=== PATIENT | male | born 1965 ===

== ENCOUNTER 2022-08-16 23:40 | Inpatient (IN) ==
[2022-08-17] MEDS ORDERED: ALUM/MAG/SIMETH/LIDO VISC 1:1 30 ML BOTTLE PO STA (00:02)
[2022-08-17] MEDS ORDERED: MORPHINE 2 MG/1 ML SYRINGE IV STA (00:02)
[2022-08-17] MEDS ORDERED: NITROGLYCERIN 2% OINT 1 INCH/GM PACK TOP STA (00:02)
[2022-08-17] MEDS ORDERED: ASPIRIN 325 MG TABLET PO STA (00:02)
[2022-08-17] MEDS ORDERED: ONDANSETRON 4 MG/2 ML VIAL IV STA (00:02)
[2022-08-17 00:18] LABS: Alanine Aminotransferase 42 U/L (16-61); Alkaline Phosphatase 129 U/L (45-117); Aspartate Amino Transferase 29 U/L (0-37); Bilirubin,Total < 0.39 MG/DL (0.20-1.00); Blood Urea Nitrogen 13 MG/DL (7-18); Calcium 8.5 MG/DL (8.5-10.1); Carbon Dioxide 25 MMOL/L (21-32); Chloride 110 MMOL/L (98-107); Glucose 128 MG/DL (74-106); Osmolality,Calculated 282.3 MOS/KG (273-304); Potassium 3.8 MMOL/L (3.5-5.1); Sodium 141 MMOL/L (136-145); Total Protein 7.6 G/DL (6.4-8.2)
[2022-08-17] MEDS ORDERED: TICAGRELOR 90 MG TABLET PO STA (00:19)
[2022-08-17] MEDS ORDERED: HEPARIN 5,000 UNIT/1 ML VIAL ONE ×2 (00:19→01:04)
[2022-08-17] MEDS ORDERED: TICAGRELOR 90 MG TABLET ONE (00:19)
[2022-08-17] MEDS ORDERED: HEPARIN 1,000 UNIT/1 ML VIAL IV STA (00:20)
[2022-08-17 00:26] LABS: Basophils % 0.4 % (0.0-0.8); Eosinophils # 0.1 10*3/uL (0.0-0.87); Eosinophils % 2.1 % (0.00-10.9); Hematocrit 44.8 VOL% (42.0-52.0); Immature Granulocytes % 0.1 %; Immature Granulocytes Absolute 0.01 #; Lymphocytes # 3.5 10*3/uL (1.4-4.0); Lymphocytes % 52.1 % (21.2-54.2); Mean Corpuscular HGB Conc 33.5 GM/DL (32-36); Mean Corpuscular Volume 92.6 FL (87-102); Mean Platelet Volume 9.5 FL (9.6-12.0); Monocytes # 0.8 10*3/uL (0.11-0.8); Monocytes % 12.4 % (1.7-12.7); Neutrophils % 32.9 % (38.7-73.9); Platelet Count 244 T/CUMM (130-400); Red Blood Count 4.84 MC/CUMM (3.8-5.5); Red Cell Distribution Width 12.4 % (9.3-17.3); White Blood Count 6.7 T/CUMM (4-12)
[2022-08-17] MEDS ORDERED: HEPARIN/NACL 0.9% 2 UNITS/ML 3,000 UNIT/1,500 ML BAG IV ONE (00:45)
[2022-08-17 00:57] LABS: Eosinophils 2 % (0-10); Lymphocytes 55 % (20-55); Platelet Estimate Adequate; Total Cells Counted 100
[2022-08-17] MEDS ORDERED: MIDAZOLAM 2 MG/2 ML VIAL ONE (00:58)
[2022-08-17] MEDS ORDERED: fentaNYL 100 MCG/2 ML VIAL ONE (00:58)
[2022-08-17] MEDS ORDERED: NITROGLYCERIN DRIP 50 MG/250 ML BOTTLE IV ONE (01:28)
[2022-08-17] MEDS ORDERED: GLUCAGON 1 MG VIAL IM PRN (01:57)
[2022-08-17] MEDS ORDERED: MORPHINE 10 MG/1 ML VIAL ONE (02:06)
[2022-08-17] MEDS ORDERED: DEXTROSE 10% 250 ML BAG IV PRN (02:10)
[2022-08-17] MEDS: SODIUM CHLORIDE 0.9% 600 ML IV SCH ×2 (02:15→08:28)
[2022-08-17 03:23] LABS: Barbiturates Screen,Urine Negative (Negative); Benzodiazepines Screen,Urine Positive (Negative); Cannabinoid Screen,Urine Negative (Negative); Opiate Screen,Urine Positive (Negative); Phencyclidine Screen,Urine Negative (Negative)
[2022-08-17 06:10] LABS: Basophils % 0.3 % (0.0-0.8); Eosinophils # 0.1 10*3/uL (0.0-0.87); Eosinophils % 0.7 % (0.00-10.9); Hematocrit 43.8 VOL% (42.0-52.0); Hemoglobin 14.4 GM/DL (14.0-18.0); Immature Granulocytes % 0.4 %; Immature Granulocytes Absolute 0.03 #; Lymphocytes # 1.5 10*3/uL (1.4-4.0); Lymphocytes % 19.7 % (21.2-54.2); Mean Corpuscular HGB Conc 32.9 GM/DL (32-36); Mean Corpuscular Volume 93.6 FL (87-102); Mean Platelet Volume 9.2 FL (9.6-12.0); Monocytes # 0.6 10*3/uL (0.11-0.8); Monocytes % 7.3 % (1.7-12.7); Neutrophils % 71.6 % (38.7-73.9); Platelet Count 232 T/CUMM (130-400); Red Blood Count 4.68 MC/CUMM (3.8-5.5); Red Cell Distribution Width 12.5 % (9.3-17.3); White Blood Count 7.5 T/CUMM (4-12)
[2022-08-17 06:33] LABS: Calcium 8.3 MG/DL (8.5-10.1); Osmolality,Calculated 274.7 MOS/KG (273-304); Potassium 4.2 MMOL/L (3.5-5.1); Risk Ratio 3.12; VLDL Cholesterol 17.8 MG/DL
[2022-08-17] MEDS: INSULIN REGULAR 100 UNIT/ML SUBCUT SCH ×4 (07:47→20:22)
[2022-08-17] MEDS: ASPIRIN EC 81 MG TABLET PO SCH (09:35)
[2022-08-17] MEDS: TICAGRELOR 90 MG TABLET PO SCH ×2 (09:35→22:06)
[2022-08-17] MEDS: METOPROLOL TARTRATE 25 MG TABLET PO SCH ×2 (11:18→22:06)
[2022-08-17] MEDS ORDERED: ALUM/MAG/SIMETH/LIDO VISC 1:1 30 ML BOTTLE PO ONE (11:35)
[2022-08-17] MEDS: ACETAMINOPHEN 325 MG TABLET PO PRN (16:15)
[2022-08-17] MEDS: ATORVASTATIN 40 MG TABLET PO SCH (22:05)
[2022-08-18] MEDS: ACETAMINOPHEN 325 MG TABLET PO PRN ×2 (06:26→12:37)
[2022-08-18] MEDS: INSULIN REGULAR 100 UNIT/ML SUBCUT SCH ×4 (07:49→21:09)
[2022-08-18] MEDS ORDERED: INFLUENZA VIRUS VACCINE 0.5 ML SYRINGE IM ONE (08:00)
[2022-08-18] MEDS: ASPIRIN EC 81 MG TABLET PO SCH (08:28)
[2022-08-18] MEDS: TICAGRELOR 90 MG TABLET PO SCH ×2 (08:28→21:09)
[2022-08-18] MEDS: METOPROLOL TARTRATE 25 MG TABLET PO SCH ×2 (08:28→21:09)
[2022-08-18] MEDS: ATORVASTATIN 40 MG TABLET PO SCH (21:09)
[2022-08-19] MEDS: NITROGLYCERIN SL 0.4 MG TABLET SL PRN ×3 (03:56→04:06)
[2022-08-19] MEDS: ACETAMINOPHEN 325 MG TABLET PO PRN (04:25)
[2022-08-19] MEDS: INSULIN REGULAR 100 UNIT/ML SUBCUT SCH (07:37)
[2022-08-19] MEDS: ASPIRIN EC 81 MG TABLET PO SCH (08:00)
[2022-08-19] MEDS: METOPROLOL TARTRATE 25 MG TABLET PO SCH (08:00)
[2022-08-19] MEDS: TICAGRELOR 90 MG TABLET PO SCH (08:00)
[2022-08-19 09:03] VITALS: BP 109/72
[2022-08-19] MEDS ORDERED: CLOPIDOGREL 300 MG TABLET PO ONE (09:32)
[2022-08-20] MEDS ORDERED: CLOPIDOGREL 75 MG TABLET PO SCH (09:00)
== END 2022-08-19 11:55 | disposition home or self-care (01) | DRG 247 ==
LOC: N.ED 23:40 → N.ICU 08-17 00:46
PROVIDERS: ADMIT Internal Medicine Cardiovascular Disease; ATTEND Internal Medicine Cardiovascular Disease
PROC: CLCCHCL (ICD-10-PCS; 2022-08-17 01:30)